=== PATIENT | female | born 1940 | race Caucasian/White ===

== ENCOUNTER 2017-06-18 13:22 | Inpatient (IN) | payer MEDICARE, SELFPAY ==
[~2017-06-18] VITALS: Ht 149.9 cm; Wt 58.4 kg
[2017-06-18] MEDS ORDERED: SODIUM CHLORIDE FLUSH 10ML SYR IVF ONE (14:00)
[2017-06-18] MEDS ORDERED: IRON1TAB60 PO (14:02)
[2017-06-18] MEDS: PLEASE ENTER ALLERGIES MC SCH ×2 (14:30→22:30)
[2017-06-18 14:38] LABS: BASOPHILS # (AUTO) 0.03 x10^3/uL (0-0.1); BASOPHILS % (AUTO) 0 % (0-1); EOSINOPHILS # (AUTO) 0.05 x10^3/uL (0-0.4); EOSINOPHILS % (AUTO) 1 % (1-7); LYMPHOCYTES # (AUTO) 0.95 x10^3/uL (1-3.4); LYMPHOCYTES % (AUTO) 9 % (22-44); MD NO; MEAN CORPUSCULAR HEMOGLOBIN 29.1 pg (27.0-34.8); MEAN CORPUSCULAR HGB CONC 33.2 g/dL (32.4-35.8); MEAN CORPUSCULAR VOLUME 87.6 fL (80-100); MEAN PLATELET VOLUME 6.8 fL (7.4-10.4); MONOCYTES # (AUTO) 0.96 x10^3/uL (0.2-0.8); MONOCYTES % (AUTO) 9 % (2-9); NEUTROPHILS # (AUTO) 8.35 x10^3/uL (1.8-6.8); NEUTROPHILS % (AUTO) 81 % (42-75); PLATELET COUNT 718 x10^3/uL (130-400); RED BLOOD COUNT 2.79 x10^6/uL (3.82-5.3); RED CELL DISTRIBUTION WIDTH 17.8 % (9.6-15.2)
[2017-06-18 14:48] LABS: ALBUMIN 2.4 g/dL (3.4-5.0); ANION GAP 10 mmol/L (5-15); CALCIUM 8.5 mg/dL (8.5-10.1); CHLORIDE 107 mmol/L (98-107)
[2017-06-18 15:00] LABS: ALANINE AMINOTRANSFERASE 10 U/L (12-78); ALKALINE PHOSPHATASE 101 U/L (45-117); BILIRUBIN,TOTAL 0.3 mg/dL (0.2-1.0); CREATININE 1.55 mg/dL (0.55-1.02); FREE T4 (FREE THYROXINE) 1.07 ng/dL (0.76-1.46); TOTAL PROTEIN 6.9 g/dL (6.4-8.2)
[2017-06-18] MEDS ORDERED: SODIUM CHLORIDE 0.9% 1,000ML IVBOLUS ONE (18:00)
[2017-06-18 21:37] VITALS: BP 127/63
[2017-06-18] MEDS ORDERED: hydrALAzine 20 MG/ML, 1ML IVPush PRN (22:00)
[2017-06-18] MEDS ORDERED: DOCUSATE 100 MG CAPSULE PO PRN (22:00)
[2017-06-18] MEDS ORDERED: LORazepam 1MG TABLET PO PRN (22:00)
[2017-06-18] MEDS ORDERED: ONDANSETRON ODT 4 MG PO PRN (22:00)
[2017-06-18] MEDS ORDERED: OLANZAPINE 10 MG TABLET ONE (22:58)
[2017-06-18] MEDS: OLANZAPINE 5 MG TABLET PO SCH (23:02)
[2017-06-19 01:02] VITALS: BP 122/62
[2017-06-19 01:34] LABS: CULTURE INDICATED? YES; MICROSCOPIC INDICATED
[2017-06-19 01:41] LABS: AMPHETAMINE SCREEN, URINE Negative (Negative); BARBITURATE SCREEN, URINE Negative (Negative); BENZODIAZEPINE SCREEN, URINE Negative (Negative); CANNABINOID SCREEN, URINE Negative (Negative); COCAINE SCREEN, URINE Negative (Negative); METHADONE SCREEN, URINE Negative (Negative); OPIATE SCREEN, URINE Negative (Negative)
[2017-06-19 05:01] LABS: ANION GAP 6 mmol/L (5-15); BASOPHILS # (AUTO) 0.08 x10^3/uL (0-0.1); BASOPHILS % (AUTO) 1 % (0-1); CALCIUM 8.2 mg/dL (8.5-10.1); CHLORIDE 116 mmol/L (98-107); EOSINOPHILS # (AUTO) 0.23 x10^3/uL (0-0.4); EOSINOPHILS % (AUTO) 4 % (1-7); LYMPHOCYTES # (AUTO) 1.38 x10^3/uL (1-3.4); LYMPHOCYTES % (AUTO) 24 % (22-44); MD NO; MEAN CORPUSCULAR HEMOGLOBIN 28.7 pg (27.0-34.8); MEAN CORPUSCULAR HGB CONC 32.4 g/dL (32.4-35.8); MEAN CORPUSCULAR VOLUME 88.6 fL (80-100); MONOCYTES # (AUTO) 0.84 x10^3/uL (0.2-0.8); MONOCYTES % (AUTO) 15 % (2-9); NEUTROPHILS % (AUTO) 56 % (42-75); PLATELET COUNT 585 x10^3/uL (130-400); RED BLOOD COUNT 2.58 x10^6/uL (3.82-5.3)
[2017-06-19 05:12] LABS: CREATININE 0.95 mg/dL (0.55-1.02)
[2017-06-19 06:51] VITALS: BP 123/69
[2017-06-19] MEDS: OLANZAPINE 5 MG TABLET PO SCH ×2 (07:51→20:00)
[2017-06-19] MEDS: VIT C PO SCH (09:00)
[2017-06-19] MEDS: [UNRECOGNIZED DRUG - OTHER] PO SCH (09:00)
[2017-06-19] MEDS: VIT B12 PO SCH (09:00)
[2017-06-19] MEDS ORDERED: FLUCONAZOLE 100 MG TABLET PO ONE (09:00)
[2017-06-19] MEDS: IRON CARBONYL PO SCH (09:00)
[2017-06-19 13:16] VITALS: BP 120/73
[2017-06-19] MEDS ORDERED: DEXTROSE 4 GM TAB.CHEW PO PRN (13:30)
[2017-06-19] MEDS ORDERED: DEXTROSE 50%, 50ML SYRINGE IVPush PRN (13:30)
[2017-06-19] MEDS ORDERED: GLUCAGON 1 MG IM PRN (13:30)
[2017-06-19 14:36] LABS: INTERNATIONAL NORMALIZED RATIO 1.08 (0.93-1.1); PROTHROMBIN TIME 11.2 Seconds (9.6-11.5)
[2017-06-19] MEDS: CEFTRIAXONE PMX 1GM/50ML 50 ML IV SCH (15:21)
[2017-06-19] MEDS: PANTOPRAZOLE 40 MG IV IVPush SCH (15:21)
[2017-06-19 19:53] VITALS: BP 100/60
[2017-06-19] MEDS: SODIUM CHLORIDE FLUSH 10ML SYR IVF SCH (20:00)
[2017-06-20 02:00] VITALS: BP 105/66
[2017-06-20] MEDS: ACETAMINOPHEN 325 MG TABLET PO PRN ×3 (02:47→20:04)
[2017-06-20] MEDS: PANTOPRAZOLE 40 MG IV IVPush SCH ×2 (02:48→15:39)
[2017-06-20 07:50] VITALS: BP 120/75
[2017-06-20] MEDS: SODIUM CHLORIDE FLUSH 10ML SYR IVF SCH ×2 (09:00→20:04)
[2017-06-20] MEDS: VIT B12 PO SCH (09:00)
[2017-06-20] MEDS: VIT C PO SCH (09:00)
[2017-06-20] MEDS: [UNRECOGNIZED DRUG - OTHER] PO SCH (09:00)
[2017-06-20] MEDS: IRON CARBONYL PO SCH (09:00)
[2017-06-20 14:30] VITALS: BP 101/62
[2017-06-20 14:34] LABS: BASOPHILS # (AUTO) 0.08 x10^3/uL (0-0.1); BASOPHILS % (AUTO) 1 % (0-1); EOSINOPHILS % (AUTO) 3 % (1-7); LYMPHOCYTES # (AUTO) 1.14 x10^3/uL (1-3.4); LYMPHOCYTES % (AUTO) 18 % (22-44); MD NO; MEAN CORPUSCULAR HEMOGLOBIN 28.1 pg (27.0-34.8); MEAN CORPUSCULAR HGB CONC 32.2 g/dL (32.4-35.8); MEAN CORPUSCULAR VOLUME 87.2 fL (80-100); MEAN PLATELET VOLUME 6.7 fL (7.4-10.4); MONOCYTES # (AUTO) 0.81 x10^3/uL (0.2-0.8); MONOCYTES % (AUTO) 13 % (2-9); NEUTROPHILS # (AUTO) 4.06 x10^3/uL (1.8-6.8); NEUTROPHILS % (AUTO) 65 % (42-75); PLATELET COUNT 659 x10^3/uL (130-400); RED BLOOD COUNT 2.76 x10^6/uL (3.82-5.3); RED CELL DISTRIBUTION WIDTH 16.8 % (9.6-15.2)
[2017-06-20 14:44] LABS: ANION GAP 7 mmol/L (5-15); CALCIUM 8.7 mg/dL (8.5-10.1); CHLORIDE 110 mmol/L (98-107); CREATININE 1.01 mg/dL (0.55-1.02); TOTAL IRON BINDING CAPACITY 224 mcg/dL (250-450)
[2017-06-20 14:49] LABS: % IRON SATURATION 5 % (20-55); IRON LEVEL 11 mcg/dL (50-170); TRANSFERRIN 195 mg/dL (200-360)
[2017-06-20] MEDS: CEFTRIAXONE PMX 1GM/50ML 50 ML IV SCH (15:39)
[2017-06-20 19:00] VITALS: BP 105/61
[2017-06-20] MEDS: OLANZAPINE 5 MG TABLET PO SCH (20:04)
[2017-06-20 21:00] LABS: OCCULT BLOOD POSITIVE (NEGATIVE)
[2017-06-21 01:55] VITALS: BP 130/78
[2017-06-21] MEDS: PANTOPRAZOLE 40 MG IV IVPush SCH ×2 (03:14→15:32)
[2017-06-21 05:59] LABS: BASOPHILS # (AUTO) 0.07 x10^3/uL (0-0.1); BASOPHILS % (AUTO) 1 % (0-1); EOSINOPHILS # (AUTO) 0.32 x10^3/uL (0-0.4); EOSINOPHILS % (AUTO) 5 % (1-7); LYMPHOCYTES # (AUTO) 1.29 x10^3/uL (1-3.4); LYMPHOCYTES % (AUTO) 18 % (22-44); MD NO; MEAN CORPUSCULAR HGB CONC 32.9 g/dL (32.4-35.8); MEAN CORPUSCULAR VOLUME 88.3 fL (80-100); MEAN PLATELET VOLUME 7.4 fL (7.4-10.4); MONOCYTES # (AUTO) 0.66 x10^3/uL (0.2-0.8); MONOCYTES % (AUTO) 9 % (2-9); NEUTROPHILS # (AUTO) 4.67 x10^3/uL (1.8-6.8); NEUTROPHILS % (AUTO) 67 % (42-75); PLATELET COUNT 583 x10^3/uL (130-400); RED BLOOD COUNT 2.66 x10^6/uL (3.82-5.3); RED CELL DISTRIBUTION WIDTH 16.6 % (9.6-15.2)
[2017-06-21 06:07] LABS: ANION GAP 4 mmol/L (5-15); CALCIUM 8.6 mg/dL (8.5-10.1); CHLORIDE 113 mmol/L (98-107); CREATININE 0.96 mg/dL (0.55-1.02)
[2017-06-21 08:13] VITALS: BP 130/64
[2017-06-21] MEDS: SODIUM CHLORIDE FLUSH 10ML SYR IVF SCH ×2 (08:30→20:44)
[2017-06-21] MEDS: ACETAMINOPHEN 325 MG TABLET PO PRN ×2 (08:41→15:43)
[2017-06-21] MEDS: IRON SUCROSE COMPLEX 100MG/5ML IV SCH (08:41)
[2017-06-21] MEDS: VIT B12 PO SCH (09:00)
[2017-06-21] MEDS: IRON CARBONYL PO SCH (09:00)
[2017-06-21] MEDS: VIT C PO SCH (09:00)
[2017-06-21] MEDS: [UNRECOGNIZED DRUG - OTHER] PO SCH (09:00)
[2017-06-21] MEDS ORDERED: CEFTRIAXONE PMX 1GM/50ML 50 ML IV SCH (14:00)
[2017-06-21] MEDS: CEFTRIAXONE PMX 1GM/50ML 50 ML IV SCH (14:11)
[2017-06-21 14:30] VITALS: BP 104/61
[2017-06-21 19:24] VITALS: BP 108/68
[2017-06-21] MEDS: OLANZAPINE 5 MG TABLET PO SCH (20:44)
[2017-06-22 00:52] VITALS: BP 122/76
[2017-06-22] MEDS: PANTOPRAZOLE 40 MG IV IVPush SCH ×3 (03:11→14:56)
[2017-06-22 08:04] VITALS: BP 114/67
[2017-06-22] MEDS: IRON CARBONYL PO SCH (08:39)
[2017-06-22] MEDS: VIT C PO SCH (08:39)
[2017-06-22] MEDS: [UNRECOGNIZED DRUG - OTHER] PO SCH (08:39)
[2017-06-22] MEDS: VIT B12 PO SCH (08:39)
[2017-06-22] MEDS: SODIUM CHLORIDE FLUSH 10ML SYR IVF SCH ×2 (09:24→20:12)
[2017-06-22] MEDS: ACETAMINOPHEN 325 MG TABLET PO PRN (09:24)
[2017-06-22] MEDS: IRON SUCROSE COMPLEX 100MG/5ML IV SCH (09:24)
[2017-06-22] MEDS: CEFTRIAXONE PMX 1GM/50ML 50 ML IV SCH (14:07)
[2017-06-22 14:30] VITALS: BP 106/65
[2017-06-22] MEDS ORDERED: GOLYTELY 4,000ML ORAL.SOL PO ONE (17:00)
[2017-06-22 18:52] VITALS: BP 104/66
[2017-06-22] MEDS: OLANZAPINE 5 MG TABLET PO SCH (20:12)
[2017-06-23 01:54] VITALS: BP 100/63
[2017-06-23] MEDS: PANTOPRAZOLE 40 MG IV IVPush SCH ×2 (02:59→14:27)
[2017-06-23 05:33] LABS: BASOPHILS # (AUTO) 0.06 x10^3/uL (0-0.1); BASOPHILS % (AUTO) 1 % (0-1); EOSINOPHILS # (AUTO) 0.23 x10^3/uL (0-0.4); EOSINOPHILS % (AUTO) 4 % (1-7); LYMPHOCYTES # (AUTO) 1.33 x10^3/uL (1-3.4); LYMPHOCYTES % (AUTO) 21 % (22-44); MD NO; MEAN CORPUSCULAR HEMOGLOBIN 28.2 pg (27.0-34.8); MEAN CORPUSCULAR HGB CONC 32.4 g/dL (32.4-35.8); MEAN CORPUSCULAR VOLUME 87.1 fL (80-100); MEAN PLATELET VOLUME 7.3 fL (7.4-10.4); MONOCYTES # (AUTO) 0.68 x10^3/uL (0.2-0.8); MONOCYTES % (AUTO) 11 % (2-9); NEUTROPHILS # (AUTO) 4.08 x10^3/uL (1.8-6.8); NEUTROPHILS % (AUTO) 64 % (42-75); PLATELET COUNT 555 x10^3/uL (130-400); RED BLOOD COUNT 2.69 x10^6/uL (3.82-5.3); RED CELL DISTRIBUTION WIDTH 16.6 % (9.6-15.2)
[2017-06-23 05:43] LABS: CHLORIDE 113 mmol/L (98-107)
[2017-06-23 05:50] LABS: ANION GAP 7 mmol/L (5-15); CALCIUM 8.9 mg/dL (8.5-10.1); CREATININE 0.96 mg/dL (0.55-1.02)
[2017-06-23 07:15] VITALS: BP 109/70
[2017-06-23] MEDS: [UNRECOGNIZED DRUG - OTHER] PO SCH (07:37)
[2017-06-23] MEDS: IRON CARBONYL PO SCH (07:37)
[2017-06-23] MEDS: VIT B12 PO SCH (07:37)
[2017-06-23] MEDS: VIT C PO SCH (07:37)
[2017-06-23] MEDS: IRON SUCROSE COMPLEX 100MG/5ML IV SCH (07:51)
[2017-06-23] MEDS: SODIUM CHLORIDE FLUSH 10ML SYR IVF SCH ×2 (07:51→20:39)
[2017-06-23] MEDS: ACETAMINOPHEN 325 MG TABLET PO PRN ×2 (07:59→17:13)
[2017-06-23 14:19] VITALS: BP 100/66
[2017-06-23] MEDS: CEFTRIAXONE PMX 1GM/50ML 50 ML IV SCH (14:27)
[2017-06-23] MEDS ORDERED: GOLYTELY 4,000ML ORAL.SOL PO ONE (15:00)
[2017-06-23 19:10] VITALS: BP 105/65
[2017-06-23] MEDS: OLANZAPINE 5 MG TABLET PO SCH (20:39)
[2017-06-24 03:37] VITALS: BP 103/64
[2017-06-24] MEDS: PANTOPRAZOLE 40 MG IV IVPush SCH (04:54)
[2017-06-24 05:28] LABS: BASOPHILS # (AUTO) 0.07 x10^3/uL (0-0.1); BASOPHILS % (AUTO) 1 % (0-1); EOSINOPHILS # (AUTO) 0.23 x10^3/uL (0-0.4); EOSINOPHILS % (AUTO) 3 % (1-7); LYMPHOCYTES # (AUTO) 1.41 x10^3/uL (1-3.4); LYMPHOCYTES % (AUTO) 15 % (22-44); MD NO; MEAN CORPUSCULAR HEMOGLOBIN 28.8 pg (27.0-34.8); MEAN CORPUSCULAR HGB CONC 32.9 g/dL (32.4-35.8); MEAN CORPUSCULAR VOLUME 87.6 fL (80-100); MEAN PLATELET VOLUME 7.2 fL (7.4-10.4); MONOCYTES # (AUTO) 0.89 x10^3/uL (0.2-0.8); MONOCYTES % (AUTO) 10 % (2-9); NEUTROPHILS # (AUTO) 6.68 x10^3/uL (1.8-6.8); NEUTROPHILS % (AUTO) 72 % (42-75); PLATELET COUNT 579 x10^3/uL (130-400); RED BLOOD COUNT 2.76 x10^6/uL (3.82-5.3); RED CELL DISTRIBUTION WIDTH 16.2 % (9.6-15.2)
[2017-06-24 07:37] VITALS: BP 124/73
[2017-06-24] MEDS: VIT C PO SCH (07:45)
[2017-06-24] MEDS: IRON CARBONYL PO SCH (07:45)
[2017-06-24] MEDS: VIT B12 PO SCH (07:45)
[2017-06-24] MEDS: [UNRECOGNIZED DRUG - OTHER] PO SCH (07:45)
[2017-06-24] MEDS: SODIUM CHLORIDE FLUSH 10ML SYR IVF SCH ×2 (09:00→19:05)
[2017-06-24] MEDS: CEFTRIAXONE PMX 1GM/50ML 50 ML IV SCH (13:48)
[2017-06-24 14:00] VITALS: BP 110/71
[2017-06-24] MEDS: PANTOPROZOLE 40MG TABLET PO SCH (17:21)
[2017-06-24 18:58] VITALS: BP 129/63
[2017-06-24] MEDS: OLANZAPINE 5 MG TABLET PO SCH (19:38)
[2017-06-25 03:57] VITALS: BP 102/88
[2017-06-25 05:25] LABS: BASOPHILS # (AUTO) 0.08 x10^3/uL (0-0.1); BASOPHILS % (AUTO) 1 % (0-1); EOSINOPHILS # (AUTO) 0.31 x10^3/uL (0-0.4); EOSINOPHILS % (AUTO) 4 % (1-7); LYMPHOCYTES # (AUTO) 1.46 x10^3/uL (1-3.4); LYMPHOCYTES % (AUTO) 17 % (22-44); MD NO; MEAN CORPUSCULAR HEMOGLOBIN 28.7 pg (27.0-34.8); MEAN CORPUSCULAR HGB CONC 32.6 g/dL (32.4-35.8); MEAN CORPUSCULAR VOLUME 87.9 fL (80-100); MEAN PLATELET VOLUME 7.3 fL (7.4-10.4); MONOCYTES # (AUTO) 1.02 x10^3/uL (0.2-0.8); MONOCYTES % (AUTO) 12 % (2-9); NEUTROPHILS # (AUTO) 5.94 x10^3/uL (1.8-6.8); NEUTROPHILS % (AUTO) 68 % (42-75); PLATELET COUNT 541 x10^3/uL (130-400); RED BLOOD COUNT 2.72 x10^6/uL (3.82-5.3); RED CELL DISTRIBUTION WIDTH 16.8 % (9.6-15.2)
[2017-06-25] MEDS: PANTOPROZOLE 40MG TABLET PO SCH ×2 (07:30→17:00)
[2017-06-25] MEDS: [UNRECOGNIZED DRUG - OTHER] PO SCH (09:00)
[2017-06-25] MEDS: SODIUM CHLORIDE FLUSH 10ML SYR IVF SCH ×2 (09:00→20:23)
[2017-06-25] MEDS: IRON CARBONYL PO SCH (09:00)
[2017-06-25] MEDS: VIT B12 PO SCH (09:00)
[2017-06-25] MEDS: VIT C PO SCH (09:00)
[2017-06-25 11:13] LABS: OCCULT BLOOD POSITIVE (NEGATIVE)
[2017-06-25] MEDS: CEFDINIR 300 MG CAPSULE PO SCH ×2 (12:00→20:23)
[2017-06-25] MEDS ORDERED: CEFTRIAXONE PMX 1GM/50ML 50 ML IV SCH (14:00)
[2017-06-25] MEDS: IRON SUCROSE COMPLEX 100MG/5ML IV SCH (16:00)
[2017-06-25 18:48] VITALS: BP 104/65
[2017-06-25] MEDS: OLANZAPINE 5 MG TABLET PO SCH (20:23)
[2017-06-26 01:44] VITALS: BP 109/67
[2017-06-26 07:41] VITALS: BP 100/64
[2017-06-26] MEDS: VIT B12 PO SCH (07:45)
[2017-06-26] MEDS: IRON CARBONYL PO SCH (07:45)
[2017-06-26] MEDS: SODIUM CHLORIDE FLUSH 10ML SYR IVF SCH ×2 (07:45→21:00)
[2017-06-26] MEDS: VIT C PO SCH (07:45)
[2017-06-26] MEDS: [UNRECOGNIZED DRUG - OTHER] PO SCH (07:45)
[2017-06-26] MEDS: IRON SUCROSE COMPLEX 100MG/5ML IV SCH (07:45)
[2017-06-26] MEDS: PANTOPROZOLE 40MG TABLET PO SCH ×2 (08:21→20:54)
[2017-06-26] MEDS: CEFDINIR 300 MG CAPSULE PO SCH ×2 (08:21→20:54)
[2017-06-26 19:35] VITALS: BP 93/53
[2017-06-26] MEDS: OLANZAPINE 5 MG TABLET PO SCH (20:55)
[2017-06-27] MEDS: PANTOPROZOLE 40MG TABLET PO SCH ×2 (06:32→16:19)
[2017-06-27 07:58] VITALS: BP 89/55
[2017-06-27] MEDS: CEFDINIR 300 MG CAPSULE PO SCH ×2 (08:36→20:24)
[2017-06-27] MEDS: VIT C PO SCH (09:00)
[2017-06-27] MEDS: VIT B12 PO SCH (09:00)
[2017-06-27] MEDS: [UNRECOGNIZED DRUG - OTHER] PO SCH (09:00)
[2017-06-27] MEDS: SODIUM CHLORIDE FLUSH 10ML SYR IVF SCH (09:00)
[2017-06-27] MEDS: IRON CARBONYL PO SCH (09:00)
[2017-06-27] MEDS: IRON SUCROSE COMPLEX 100MG/5ML IV SCH (09:00)
[2017-06-27] MEDS: FERROUS SULFATE 325 MG TABLET PO SCH ×2 (11:51→16:19)
[2017-06-27 19:44] VITALS: BP 85/36
[2017-06-27 19:45] VITALS: BP 99/67
[2017-06-27 20:12] VITALS: BP 100/63
[2017-06-27] MEDS: OLANZAPINE 5 MG TABLET PO SCH (20:25)
[2017-06-28] MEDS: PANTOPROZOLE 40MG TABLET PO SCH ×2 (07:52→16:37)
[2017-06-28] MEDS: FERROUS SULFATE 325 MG TABLET PO SCH ×3 (08:00→16:37)
[2017-06-28] MEDS: CEFDINIR 300 MG CAPSULE PO SCH ×2 (08:01→20:43)
[2017-06-28 08:26] VITALS: BP 100/64
[2017-06-28 20:18] VITALS: BP 99/59
[2017-06-28] MEDS: OLANZAPINE 5 MG TABLET PO SCH (20:43)
[2017-06-29] MEDS: PANTOPROZOLE 40MG TABLET PO SCH ×2 (08:01→17:38)
[2017-06-29] MEDS: CEFDINIR 300 MG CAPSULE PO SCH (08:01)
[2017-06-29] MEDS: FERROUS SULFATE 325 MG TABLET PO SCH ×3 (08:01→17:38)
[2017-06-29 20:27] VITALS: BP 97/62
[2017-06-29] MEDS: OLANZAPINE 5 MG TABLET PO SCH (20:33)
[2017-06-30] MEDS: PANTOPROZOLE 40MG TABLET PO SCH ×2 (07:59→16:41)
[2017-06-30] MEDS: FERROUS SULFATE 325 MG TABLET PO SCH ×3 (07:59→16:41)
[2017-06-30 08:55] VITALS: BP 100/59
[2017-06-30 19:38] VITALS: BP 97/60
[2017-06-30] MEDS: OLANZAPINE 5 MG TABLET PO SCH (20:29)
[2017-07-01] MEDS: FERROUS SULFATE 325 MG TABLET PO SCH ×3 (07:39→16:44)
[2017-07-01] MEDS: PANTOPROZOLE 40MG TABLET PO SCH ×2 (07:39→16:44)
[2017-07-01 08:10] VITALS: BP 127/89
[2017-07-01 20:30] VITALS: BP 106/64
[2017-07-01] MEDS: OLANZAPINE 10 MG TABLET PO SCH (20:43)
[2017-07-02 07:07] VITALS: BP 106/71
[2017-07-02] MEDS: FERROUS SULFATE 325 MG TABLET PO SCH ×3 (07:45→16:28)
[2017-07-02] MEDS: PANTOPROZOLE 40MG TABLET PO SCH ×2 (07:45→16:28)
[2017-07-02 18:46] VITALS: BP 96/60
[2017-07-02] MEDS: OLANZAPINE 10 MG TABLET PO SCH (21:03)
[2017-07-03] MEDS: PANTOPROZOLE 40MG TABLET PO SCH (07:47)
[2017-07-03] MEDS: FERROUS SULFATE 325 MG TABLET PO SCH ×2 (07:47→11:15)
[2017-07-03 08:50] VITALS: BP 114/67
== END 2017-07-03 12:56 | disposition home or self-care (01) | DRG 377 ==
LOC: ED 16:13 → EDIP 18:54 → 3NE 20:28 → 3E 06-26 11:33
PROVIDERS: ADMIT Hospitalist; ATTEND Hospitalist
DX: K62.5 Hemorrhage of anus and rectum (principal); N17.0 Acute kidney failure with tubular necrosis; E87.0 Hyperosmolality and hypernatremia; D62 Acute posthemorrhagic anemia; E44.0 Moderate protein-calorie malnutrition; F31.2 Bipolar disorder, current episode manic severe with psychotic features; F23 Brief psychotic disorder; F31.5 Bipolar disorder, current episode depressed, severe, with psychotic features; K44.9 Diaphragmatic hernia without obstruction or gangrene; N89.8 Other specified noninflammatory disorders of vagina; R21 Rash and other nonspecific skin eruption; L98.499 Non-pressure chronic ulcer of skin of other sites with unspecified severity; D47.3 Essential (hemorrhagic) thrombocythemia; Z68.26 Body mass index [BMI] 26.0-26.9, adult; F39 Unspecified mood [affective] disorder; Z59.0 Homelessness; Z81.8 Family history of other mental and behavioral disorders; Z87.891 Personal history of nicotine dependence
CPT/HCPCS: 36415; 70450; 74022; 74176; 80048; 80053; 80307; 81001; 82140; 82272; 82728; 83540; 83550; 83735; 84439; 84443; 84466; 85014; 85018; 85025; 85610; 86850; 86900; 87077; 87086; 87186; 87491; 87591; 87806; 93005; 96360; J0696; J1756; C9113; G0475; J7030